=== PATIENT | male | born 1955 | race Caucasian/White ===

== ENCOUNTER 2023-07-07 10:56 | Emergency (ER) | payer MEDICARE, SELFPAY ==
[2023-07-07 11:01] VITALS: BP 139/111
[2023-07-07 12:13] LABS: % Basophils 0.4 % (0-2); % Eosinophils 0.9 % (0-6); % Immature Granulocytes 0.4 % (0-0.5); % Lymphocytes 22.9 % (20.5-51.1); % Monocytes 11.2 % (1.7-9.3); % Neutrophils 64.2 % (42.2-75.2); Absolute Eosinophils 0.1 10^3/uL (0-0.7); Absolute Lymphocytes 1.5 10^3/uL (1.2-3.4); Absolute Monocytes 0.8 10^3/uL (0.1-0.6); Absolute Neutrophils 4.3 10^3/uL (1.4-6.5); Hemoglobin 12.6 g/dL (13.0-18.0); Mean Corp Hgb Conc. 34.1 g/dL (33.0-37.0); Mean Corpuscular Hgb 29.7 pg (27.0-31.0); Mean Corpuscular Volume 87.3 fL (80.0-94.0); Mean Platelet Volume 9.2 fL (7.4-10.4); Nucleated Red Blood Cells % 0 % (-); Platelet Count 213 10^3/uL (130-400); Red Blood Cell Count 4.24 10^6/uL (4.70-6.10); Red Cell Dist. Width 15.6 % (11.5-14.5); White Blood Cell Count 6.7 10^3/uL (4.8-10.8)
[2023-07-07 12:36] LABS: ALT (SGPT) 52 U/L (0-50); AST (SGOT) 37 U/L (17-59); Albumin 4.7 g/dl (3.5-5.0); Alkaline Phosphatase 98 U/L (38-126); Blood Urea Nitrogen 15 mg/dl (9-20); Calcium 9.2 mg/dl (8.4-10.2); Carbon Dioxide 28 mmol/L (22-30); Chloride 103 mmol/L (98-107); Glucose 84 mg/dl (70-99); Potassium 4.8 mmol/L (3.5-5.1); Sodium 138 mmol/L (135-145); Total Bilirubin 0.4 mg/dl (0.2-1.3); Total Protein 7.2 g/dl (6.3-8.2); eGFR 54.75
--- NOTE | 2023-07-07 13:13 | ED.GENMED ---
History of Present Illness
General
Chief Complaint: Abnormal Lab Value
Source: patient and spouse
Exam Limitations: none
Time Seen by Provider: 07/07/23 11:23
Nursing documentation reviewed up to this point in time: agreed with
Travel History
Have you had any contact with someone who has COVID-19?: No
Do you have any symptoms of coronavirus? Fever > 100 degrees, chills, cough, shortness of breath, sore throat, loss of taste or smell, muscle aches, or headache?: No
History of Present Illness
History of Present Illness:
68-year-old male with history of migraines, HTN, HLD, NIDDM, chronic sinusitis, fibromyalgia, psoriatic arthritis states he has been having difficulty urinating for about a month, he states he start a stream then it stops that he cannot seem to
empty his bladder symptoms are getting worse. He has been extremely lethargic, his eyes have been burning, his vision has been blurry off and on. He denies fever but has felt chills. He denies N/V/C/T.
Patient went to urgent care on 07/03 (3 days ago) and had lab work done and was told to drink a lot of Gatorade. He has had 2 gallons of Gatorade so far.
He went to urgent care today and saw Dr. Diaz who told him he was in 'renal failure' and sent him here for evaluation
Patient states he has gained 10 pounds in the past 3 days.
3 weeks ago he saw his PCP and was given a 10-day regimen of Keflex for acute sinusitis. This did not help so he went to the ENT doctor who put him on another 14-day regimen of Keflex and he is currently on day 3 of that 14-day regimen. He states
he has no improvement in his sinusitis.
Past History
Past History
ED Past Medical History: Fibromyalgia, GERD, NIDDM, Other (Migraines, chronic sinusitis , psoriatic arthritis) and Other (chronic low back pain)
ED Past Surgical History: Cholecystectomy, Orthopedic and Tonsilectomy
Social History
Tobacco: Non-smoker
Alcohol: None
Personal:
Living: with family
Review of Systems
Review of Systems
Allergies reviewed?: Yes
All Other Systems: ROS reviewed and negative except as documented in HPI and ROS
Constitutional: Reports fatigue; Denies fever or chills
Respiratory: Denies trouble breathing
Cardiac: Denies chest pain
ABD/GI: Denies abdominal pain, nausea, vomiting, diarrhea or anorexia
: Reports frequency and difficulty voiding; Denies dysuria, flank pain or bleeding
Musculoskeletal: Reports other (Chronic bilateral ankle pain, uses wheelchair at home because 'I am unsteady.' States his left leg is shorter than the right.)
Skin: Reports no symptoms
Neurological: Reports no symptoms
Phy Exam
Physical Exam
Physical Exam:
GENERAL: No acute distress. A&Ox3.
CONSTITUTIONAL: Afebrile.
EYES: PERRL, conjunctivae normal
ENMT: moist mucus membranes, Pharynx nl
RESPIRATORY: Regular respirations, nonlabored, lungs clear.
CARDIOVASCULAR: Regular rate and rhythm, no murmurs, no rubs.
GI: Soft, nontender, normal BS
MUSCULOSKELETAL: Well perfused. No edema
SKIN: Warm, dry, pink
PSYCH: Normal mood and affect. Well kept, interactive and appropriate
NEUROLOGIC: Awake, alert and oriented. No focal neurological deficits
Course
Orders/Labs/Results
Orders:
Orders
07/07/23 11:05
Electrocardiogram (*1) Urgent
Reason for Study: Tachycardia
EKG- Treatment ONCE
07/07/23 12:06
Comprehensive Metabolic Panel Urgent
Creatine Phosphokinase Urgent
Comment: add-on
07/07/23 12:07
Complete Blood Count/With Diff Urgent
07/07/23 13:21
Add On- LAB Urgent
Tests Added?: CPK
0.9% Sodium Chloride 1000 ml [Nss] 1,000 ml IV BOLUS
Renal & Bladder US [US Renal With Bladder] Urgent
Comment:
Reason For Exam: difficulty urinating new elevated Creat
07/07/23 16:11
Urinalysis Reflex To Culture Urgent
Date Specimen was Collected: 07/07/23
Time Specimen was Collected: 15:54
Urine Microscopic Reflex Cult Urgent
Abnormal Lab Results
07/07/23 07/07/23 07/07/23
12:06 12:07 16:11
RBC 4.24 L 10^6/uL
(4.70-6.10)
Hgb 12.6 L g/dL
(13.0-18.0)
Hct 37.0 L %
(39.0-52.0)
RDW 15.6 H %
(11.5-14.5)
Absolute Monos (auto) 0.8 H 10^3/uL
(0.1-0.6)
Monocytes % 11.2 H %
(1.7-9.3)
Creatinine 1.4 H mg/dL
(0.7-1.3)
ALT 52 H U/L
(0-50)
Creatine Kinase 175 H U/L
(55-170)
Urine Ketones Trace A
(Negative)
Urine Bilirubin 1+ A
(Negative)
Leukocyte Esterase Rfl Trace A
(Negative)
Urine Bacteria (Reflex) Few A
(Negative)
07/07/23 12:07
07/07/23 12:06
Vital Signs
Initial and Last Documented VS:
Initial Vital Signs
Temp Pulse Resp BP Pulse Ox
98.1 F 124 20 139/111 96
07/07/23 11:01 07/07/23 11:01 07/07/23 11:01 07/07/23 11:01 07/07/23 11:01
Last Documented Vital Signs
Temp Pulse Resp BP Pulse Ox
98.1 F 100 16 110/67 91
07/07/23 11:01 07/07/23 14:20 07/07/23 14:20 07/07/23 17:00 07/07/23 16:30
MDM/Problems Addressed
MDM/Problems Addressed:
68-year-old male with history of migraines, HTN, HLD, NIDDM, chronic sinusitis, fibromyalgia, psoriatic arthritis states he has been having difficulty urinating for about a month, he states he start a stream then it stops that he cannot seem to
empty his bladder symptoms are getting worse. He has been extremely lethargic, his eyes have been burning, his vision has been blurry off and on. He denies fever but has felt chills. He denies N/V/C/T.
Patient went to urgent care on 07/03 (3 days ago) and had lab work done and was told to drink a lot of Gatorade. He has had 2 gallons of Gatorade so far.
He went to urgent care today and saw Dr. Diaz who told him he was in 'renal failure' and sent him here for evaluation
Patient states he has gained 10 pounds in the past 3 days.
3 weeks ago he saw his PCP and was given a 10-day regimen of Keflex for acute sinusitis. This did not help so he went to the ENT doctor who put him on another 14-day regimen of Keflex and he is currently on day 3 of that 14-day regimen. He states
he has no improvement in his sinusitis.
Labs from reviewed BUN/Creat: 07/03: 28/1.7
BUN/Creat earlier today at : 28/1.7
1:00 PM
CBC with no clinically significant abnormality
CMP: BUN/creat 15/1.4 otherwise no clinically significant abnormality
Post void bladder scan: 40 ml
4:22 PM
Ultrasound renal with bladder radiology report read: Normal
No urine retention
U/A neg
Pt hydrated with improvement of kidney function.
Stable for discharge.
Has appt with Dr. Langston Urology 07/23
With Pulmonology next week
Chronic conditions affecting care: DM and HTN
*Critical Care Note
Total Time (30-74mins, 75-104mins- exclusive of procedures): Not Applicable
ED Attending Note
-
Portions of this chart may have been created with voice recognition software.� Occasional wrong word or��sound alike� substitutions may have occurred due to the inherent limitations of voice recognition software.
Discharge Plan
Departure
Patient Disposition: Home (Routine Discharge)
Date of Disposition: 07/07/23
Time of Disposition: 17:00
Patient with high blood pressure during this ER visit?: No
Condition: Good
Discharge Problem:
Acute dehydration
Prescriptions:
No Action
atorvastatin 10 mg Tablet
10 mg PO HS
lisinopril 20 mg Tablet
20 mg PO DAILY
duloxetine [Cymbalta] 30 mg Capsule,Delayed Release(Dr/Ec)
30 mg PO BID
hydrocodone-acetaminophen 10-325 mg Tablet
1.5 tab PO BID
metformin 1,000 mg Tablet
1,000 mg PO BID
pregabalin [Lyrica] 200 mg Capsule
200 mg PO BID
Trulicity 1.5 mg/0.5 mL Pen Injector
1.5 mg SC SA@0800
Ubrelvy 50 mg Tablet
50 mg PO DAILYPRN PRN (Reason: migraines)
tizanidine 2 mg Tablet
2 mg PO Q8H PRN (Reason: back pain)
trazodone 50 mg Tablet
150 mg PO HS
testosterone cypionate 100 mg/mL Oil
150 mg IM Q10D
Patient Comments:
07/07/2023, next dose due on Saturday (07/10/2023) per pt.
prednisone 5 mg Tablet
5 mg PO BID
Patient Comments:
07/07/2023, pt. stopped taking this med. roughly a week ago because he thought it was causing his symptoms.
hydrocodone-acetaminophen 10-325 mg Tablet
1 tab PO DAILYPRN PRN (Reason: severe pain)
glimepiride 2 mg Tablet
2 mg PO DAILY
lidocaine 5 % Adhesive Patch,Medicated
1 - 3 patch TOPICAL DAILY PRN (Reason: B/L legs/lumbar back)
docusate sodium [Stool Softener] 100 mg Capsule
100 mg PO DAILY PRN (Reason: constipation)
omeprazole 20 mg Capsule,Delayed Release(Dr/Ec)
40 mg PO BID
budesonide 0.5 mg/2 mL Suspension For Nebulization
0.5 mg irrigation BID
Patient Comments:
07/07/2023, sinus rinse.
azelastine 137 mcg (0.1 %) Aerosol,[place]
1 spray INTRANASAL BID
cefuroxime axetil 500 mg Tablet
500 mg PO BID
Patient Comments:
07/07/2023, per pt., he is instructed to take one tablet BID until he runs out; original prescription was one tablet BID for 14 days; pt. states that this abx treatment was extended and he has roughly 20 tablets left.
albuterol sulfate 90 mcg/actuation Hfa Aerosol Inhaler
2 puff INHALATION R Q4HPRN PRN (Reason: sob)
Centrum Silver Tablet
1 tab PO DAILY
pregabalin 200 mg Capsule
200 mg PO DAILY PRN (Reason: severe pain)
FreshKote 2.7-2 % Drops
1 drp BOTH EYES 5/D PRN (Reason: eye irritation)
Eliquis 2.5 mg Tablet
2.5 mg PO BID
Trelegy Ellipta 100-62.5-25 mcg Blister With Device
2 inh INHALATION R DAILYPRN PRN (Reason: sob)
Aimovig Autoinjector 140 mg/mL auto-injector
140 mg SC QMONTH
Patient Comments:
07/07/2023, per pt., he is due to take this med.
Referrals:
Darci Langston MD [Active] - Keep scheduled appt
Teresa Ryan, [Family Provider] -
Activity Restrictions/Additional Instructions:
As we discussed, your kidney function was most likely abnormal due to dehydration.
Drink 6-8 eight ounce glasses of water/fluid daily to stay hydrated.
Keep appointment with your Urologist in July
There is no indication of retaining urine on your bladder scan and your urine test is normal.
Interventions
Interventions:
*Risk Screen - Suicide Last Done: 07/07/23 11:34
*General Assessment Last Done: 07/07/23 11:34
*Neglect/Abuse Screening Last Done: 07/07/23 11:34
ED- Fall Risk Assessment Last Done: 07/07/23 11:34
*ED COVID-19 Vaccine History Last Done: 07/07/23 11:34
*Nursing Disposition Last Done: 07/07/23 17:39
Discharge Date and Time
Discharge Date/Time: 07/07/23 17:40
Print Language: MICRONESIAN
[2023-07-07] MEDS: NSS 1000 IV (14:00)
[2023-07-07 14:20] VITALS: BP 93/66
[2023-07-07 14:45] LABS: Creatine Phosphokinase 175 U/L (55-170)
[2023-07-07 16:11] VITALS: BP 130/72
[2023-07-07 16:28] LABS: Urine Albumin Trace (Neg - Trace); Urine Bilirubin 1+ (Negative); Urine Character Clear (Clear); Urine Color Yellow; Urine Glucose Negative (Negative); Urine Ketone Trace (Negative); Urine Leukocyte Trace (Negative); Urine Nitrite Negative (Negative); Urine Occult Blood Negative (Negative); Urine Specific Gravity 1.015 (<1.030); Urine Urobilinogen Negative (Neg - 1+)
[2023-07-07 16:36] LABS: Urine Mucus Few
[2023-07-07 16:37] LABS: Urine Bacteria Few (Negative); Urine Red Blood Cell 0-2 /HPF (0-2)
[2023-07-07 17:00] VITALS: BP 110/67
== END 2023-07-07 17:40 | disposition home or self-care (01) ==
LOC: EMR 10:56
PROVIDERS: Registered Nurse; EMERGENCY PHYSICIAN Emergency Medicine; FAMILY PHYSICIAN Family Medicine
DX: E86.0 Dehydration (principal); E11.9 Type 2 diabetes mellitus without complications; E78.5 Hyperlipidemia, unspecified; M79.7 Fibromyalgia; K21.9 Gastro-esophageal reflux disease without esophagitis; I10 Essential (primary) hypertension
CPT/HCPCS: 99285; 96360; 76770; 80053; 81003; 81015; 82550; 85025; 93005